=== PATIENT | female | born 1985 | race Caucasian/White ===

== ENCOUNTER 2018-02-26 19:34 | Emergency (ER) | payer OTHER ==
[2018-02-26 20:09] VITALS: BP 105/50
--- NOTE | 2018-02-26 21:54 | ED Physician Documentation ---
PD HPI UPPER EXT INJURY - Stated complaint Stated Complaint: R INDEX FINGER PX - Chief complaint Chief Complaint: Laceration - History of Present Illness Location: Right, Finger Type of injury: Blunt / blow Where injury occurred: Home Timing - onset: Yesterday Timing - details: Abrupt onset Similar symptoms before: Has not had sx before Recently seen: Not recently seen - Additonal information Additional information: Patient is a 32 year old female presenting to the emergency department for finger pain. Patient states that she hit it with a sledgehammer yesterday. Patient's sister is a vet and was able to clean it and put a butterfly bandage over it. Patient wanted to see if it was fractured. there is no significant open laceration at this time. Patient is up to date on her tetanus. Review of Systems Ten Systems: 10 systems reviewed and negative Musculoskeletal: reports: Extremity pain PD PAST MEDICAL HISTORY - Past Medical History Past Medical History: No - Past Surgical History Past Surgical History: Yes - Present Medications Home Medications: Ambulatory Orders Medication Instructions Recorded Confirmed Cetirizine [ZyrTEC] 1 tab PO DAILY 02/26/18 02/26/18 - Allergies Allergies/Adverse Reactions: Allergies Allergy/AdvReac Type Severity Reaction Status Date / Time No Known Drug Allergies Allergy Verified 02/26/18 20:37 - Social History Does the pt smoke?: No Smoking Status: Never smoker Does the pt drink ETOH?: No Does the pt have substance abuse?: No - Immunizations Immunizations are current?: Yes - POLST Patient has POLST: No PD ED PE NORMAL - Vitals Vital signs reviewed: Yes - General General: Alert and oriented X 3 - HEENT HEENT: Atraumatic - Neck Neck: Supple, no meningeal sign - Cardiac Cardiac: RRR - Respiratory Respiratory: No respiratory distress - Neuro Neuro: Alert and oriented X 3 Eye Opening: Spontaneous PD ED PE EXPANDED - Extremities Extremities: Right finger(s) (superficial laceration and tenderness of second digit) Results - Vitals Vitals: Vital Signs - 24 hr 02/26/18 20:06 Temperature 36.2 C L Heart Rate 67 Respiratory 16 Rate Blood Pressure 105/50 L O2 Saturation 99 Oxygen O2 Source Room air - Rads (name of study) finger x-ray Radiology: Final report received, EMP read contemporaneously (no fracture) PD MEDICAL DECISION MAKING - ED course Complexity details: reviewed old records, reviewed results, re-evaluated patient , d/w patient ED course: patient was seen and examined at bedside. Patient was sent for imaging. when patient returned results were reviewed. there was no acute fracture. Steristrip was placed on the wound. Patient required no further work up and was stable for discharge with outpatient follow up. - Sepsis Event Vital Signs: Vital Signs - 24 hr 02/26/18 20:06 Temperature 36.2 C L Heart Rate 67 Respiratory 16 Rate Blood Pressure 105/50 L O2 Saturation 99 Oxygen O2 Source Room air Departure - Departure Disposition: 01 Home, Self Care Clinical Impression: Abrasion Condition: Good Instructions: ED Laceration All Follow-Up: primary,care provider [Other] - As Needed Comments: Your diagnostics today were within normal limits. there is no acute fracture at this time. keep your wound clean and dry and monitor for signs of infection. you should follow up with your doctor for re-evaluation if necessary. you can take motrin or tylenol as needed for pain. You may return to the emergency department at any time for new, worsening or uncontrollable symptoms. Discharge Date/Time: 02/26/18 22:00
--- NOTE | 2018-02-26 22:04 | XRAY Report ---
Procedure Date: 02/26/2018 Accession Number: [id number] / [id number] Procedure: XR - Finger(s) RT CPT Code: FULL RESULT: EXAM: RIGHT SECOND DIGIT RADIOGRAPHY EXAM DATE: 02/26/2018 09:21 PM. CLINICAL HISTORY: Trauma to 2nd digit. COMPARISON: None. TECHNIQUE: 3 views. FINDINGS: Bones: No acute displaced fracture. No suspicious focal osseous lesion. Joints: No subluxation/dislocation. Soft Tissues: No radiopaque foreign body. IMPRESSION: No acute osseous abnormality. RADIA
== END 2018-02-26 22:00 | disposition home or self-care (01) ==
LOC: ED 19:34
DX: S60.410A Abrasion of right index finger, initial encounter (principal); W22.8XXA Striking against or struck by other objects, initial encounter; Y93.H9 Activity, other involving exterior property and land maintenance, building and construction; Y92.007 Garden or yard of unspecified non-institutional (private) residence as the place of occurrence of the external cause
CPT/HCPCS: 73140; 99282; 99283

== ENCOUNTER 2018-06-08 17:43 | Emergency (ER) | payer OTHER ==
[2018-06-08 18:13] VITALS: BP 132/76
[2018-06-08] MEDS ORDERED: predniSONE 20 MG TABLET PO STA (18:22)
--- NOTE | 2018-06-08 18:25 | ED Physician Documentation ---
History of Present Illness - Stated complaint Stated Complaint: EYES SWOLLEN - Chief complaint Chief Complaint: General - History obtained from History obtained from: Patient - History of Present Illness Timing: Yesterday (32-year-old woman with history of seasonal allergies developed migratory rash and itching all over as well as periorbital swelling over the last day or so. She only can think of maybe mowing the grass a few days ago as the trigger. No other new exposures. She denies shortness of breath or rhinorrhea.) Review of Systems Constitutional: denies: Fever, Chills Cardiac: denies: Chest pain / pressure, Palpitations Respiratory: denies: Dyspnea, Cough GI: denies: Abdominal Pain, Nausea, Constipation, Diarrhea PD PAST MEDICAL HISTORY - Past Surgical History Past Surgical History: Yes - Present Medications Home Medications: Ambulatory Orders Medication Instructions Recorded Confirmed Cetirizine [ZyrTEC] 1 tab PO DAILY 02/26/18 06/08/18 predniSONE [Prednisone] 60 mg PO DAILY 5 Days #15 tablet 06/08/18 - Allergies Allergies/Adverse Reactions: Allergies Allergy/AdvReac Type Severity Reaction Status Date / Time No Known Drug Allergies Allergy Verified 06/08/18 18:13 - Social History Does the pt smoke?: No Smoking Status: Never smoker Does the pt drink ETOH?: No Does the pt have substance abuse?: No - Immunizations Immunizations are current?: Yes - POLST Patient has POLST: No PD ED PE NORMAL - Vitals Vital signs reviewed: Yes - General General: Alert and oriented X 3, No acute distress - HEENT HEENT: PERRL, EOMI, Other (She has mild periorbital edema bilaterally and the oropharynx is normal without angioedema.) - Neck Neck: Supple, no meningeal sign, No bony TTP - Cardiac Cardiac: RRR, No murmur - Respiratory Respiratory: No respiratory distress, Clear bilaterally - Abdomen Abdomen: Non tender - Derm Derm: Other (Mild hives on the forearms) - Neuro Neuro: Alert and oriented X 3, Normal speech Results - Vitals Vitals: Vital Signs - 24 hr 06/08/18 18:11 Temperature 36.7 C Heart Rate 82 Respiratory 14 Rate Blood Pressure 132/76 H O2 Saturation 100 Oxygen O2 Source Room air Departure - Departure Disposition: 01 Home, Self Care Clinical Impression: Allergic reaction Qualifiers: Encounter type: initial encounter Qualified Code(s): T78.40XA - Allergy, unspecified, initial encounter Condition: Good Record reviewed to determine appropriate education?: Yes Instructions: ED Allergic Reaction General Other Prescriptions: predniSONE [Prednisone] 60 mg PO DAILY 5 Days #15 tablet Comments: You can continue the Benadryl as needed for itching and other symptoms. The steroid should help over the next 6-12 hours. Return for new or worsening symptoms. Follow-up with your physician. Your blood pressure was elevated today on check into the emergency department. This does not mean that you have hypertension, it is a common phenomenon to come to the emergency department and have elevated blood pressure. I recommend that you see your primary care physician within the week to have it rechecked when you are feeling better.
== END 2018-06-08 18:44 | disposition home or self-care (01) ==
LOC: ED 17:43
DX: T78.40XA Allergy, unspecified, initial encounter (principal); R03.0 Elevated blood-pressure reading, without diagnosis of hypertension; X58.XXXA Exposure to other specified factors, initial encounter
CPT/HCPCS: 99283; J7512

== ENCOUNTER 2019-06-13 12:43 | Emergency (ER) | payer OTHER ==
[2019-06-13 13:04] LABS: BILIRUBIN,URINE NEGATIVE (NEGATIVE); GLUCOSE, URINE (UA) NEGATIVE (NEGATIVE); KETONES,URINE (UA) NEGATIVE (NEGATIVE); LEUKOCYTE ESTERASE, URINE NEGATIVE (NEGATIVE); NITRITE,URINE NEGATIVE (NEGATIVE); OCCULT BLOOD,URINE NEGATIVE (NEGATIVE); PROTEIN,URINE NEGATIVE (NEGATIVE); UROBILINOGEN,URINE 0.2 (NORMAL) E.U./dL (NORMAL)
[2019-06-13 13:06] LABS: CLARITY,URINE CLEAR (CLEAR)
[2019-06-13 13:07] LABS: HCG UR QUAL POSITIVE
[2019-06-13 13:18] LABS: BASOPHILS % (AUTO) 0.2 %; EOSINOPHILS # (AUTO) 0.1 10^3/uL (0.0-0.7); EOSINOPHILS % (AUTO) 1.9 %; HGB - HEMOGLOBIN 12.3 g/dL (12.0-16.0); LYMPHOCYTES # (AUTO) 1.4 10^3/uL (1.5-3.5); LYMPHOCYTES % (AUTO) 24.7 %; MEAN CORPUSCULAR HEMOGLOBIN 31.3 pg (27.0-31.0); MEAN CORPUSCULAR HGB CONC 32.5 g/dL (32.0-36.0); MEAN CORPUSCULAR VOLUME 96.2 fL (81.0-99.0); MEAN PLATELET VOLUME 10.9 fL (7.9-10.8); MONOCYTES # (AUTO) 0.6 10^3/uL (0.0-1.0); MONOCYTES % (AUTO) 9.8 %; NEUTROPHILS # (AUTO) 3.7 10^3/uL (1.5-6.6); NEUTROPHILS % (AUTO) 63.1 %; PLT - PLATELET COUNT 220 10^3/uL (130-450); RED BLOOD COUNT 3.93 10^6/uL (4.20-5.40); RED CELL DISTRIBUTION WIDTH 13.3 % (12.0-15.0); WHITE BLOOD COUNT 5.8 x10^3/uL (4.8-10.8)
[2019-06-13 13:27] LABS: ALBUMIN/GLOBULIN RATIO 1.1 (1.0-2.2); BILIRUBIN,TOTAL 0.3 mg/dL (0.2-1.0); CREATININE 0.5 mg/dL (0.4-1.0); TOTAL PROTEIN 7.6 g/dL (6.7-8.2)
[2019-06-13 15:46] VITALS: BP 129/73
--- NOTE | 2019-06-13 15:50 | Ultrasound Report ---
Reason: L pelvic pain, vag bleed, 8 weeks EGA Procedure Date: 06/13/2019 Accession Number: [id number] / [id number] Procedure: US - OB Transvaginal CPT Code: Final Report FULL RESULT: EXAM: FIRST TRIMESTER OBSTETRIC ULTRASOUND (Less than 11 weeks) EXAM DATE: 06/13/2019 03:12 PM. CLINICAL HISTORY: L pelvic pain, vag bleed, 8 weeks EGA. LMP: 04/18/2019. COMPARISONS: None. TECHNIQUE: Transabdominal and transvaginal ultrasound examination with static image documentation. CLINICAL DATES: EGA 8 weeks, 0 days with LIBAN 01/23/2020 based on LMP. ASSESSMENT: Gestational Sac: Single intrauterine. Mean gestational sac diameter: 15 mm = 6 weeks, 2 days. Embryo: CRL (crown-rump length) 11 mm = 7 weeks, 1 day. Cardiac activity: 159 beats per minute. Yolk sac: 3 mm, elongated irregular shape. Amniotic fluid: Not accurately assessed at this gestational age. Early placenta: Not visible at this gestational age. Other: Small perigestational fluid collections measured 0.5 x 0.8 x 0.5 cm on the right anteriorly; and 0.4 x 0.6 x 0.5 cm on the right posteriorly. MATERNAL STRUCTURES: Uterus: Anteverted. Posterior intramural fibroid measures 0.4 x 0.3 x 0.4 cm. Cervix: Closed. Nabothian cyst noted. Right Ovary/Adnexa: The ovary measures 2.4 x 2.3 x 2.2 cm, volume 6.6 cc. Unremarkable. Left Ovary/Adnexa: The ovary measures 2.8 x 2.1 x 2.4 cm, volume 7.3 cc. Left ovarian corpus luteal cyst measures 1.2 x 1.4 x 1.6 cm. Free Fluid: None. Other: None. IMPRESSION: 1. Single viable intrauterine at EGA 7 weeks, 1 day with LIBAN 01/29/2020 based on crown-rump length, which is mildly discordant with LMP. 2. Assigned dating is ILBAN 01/29/2020 based on present ultrasound. 3. Irregular yolk sac shape noted, however this has not been shown to correlate with failure. Two small perigestational bleeds are also seen. Consider follow-up ultrasound in 10-14 days to reassess viability. 4. Small 0.4 cm posterior intramural fibroid. RADIA
--- NOTE | 2019-06-13 15:57 | ED Physician Documentation ---
PD HPI FEMALE - Stated complaint Stated Complaint: FEMALE /8 WK OB - Chief complaint Chief Complaint: Abd Pain - History obtained from History obtained from: Patient - History of Present Illness Timing - onset: Yesterday Timing - duration: Days (1) Timing - details: Gradual onset Pain level max: 4 Pain level max: 3 Associated symptoms: Vaginal bleeding (dark. only when using the bathroom. 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 History: G (4), P (3) Recently seen: Not recently seen Review of Systems Constitutional: denies: Fever, Chills GI: denies: Vomiting, Diarrhea Skin: denies: Rash Musculoskeletal: denies: Neck pain, Back pain Neurologic: denies: Focal weakness, Numbness, Headache PD PAST MEDICAL HISTORY - Past Medical History Past Medical History: Yes PEDIATRIC AUDIOLOGIST: Ovarian cysts - Past Surgical History Past Surgical History: Yes - Present Medications Home Medications: Ambulatory Orders Medication Instructions Recorded Confirmed Cetirizine [ZyrTEC] 1 tab PO DAILY 02/26/18 06/08/18 predniSONE [Prednisone] 60 mg PO DAILY 5 Days #15 tablet 06/08/18 - Allergies Allergies/Adverse Reactions: Allergies Allergy/AdvReac Type Severity Reaction Status Date / Time No Known Drug Allergies Allergy Verified 06/13/19 12:48 - Social History Does the pt smoke?: No Smoking Status: Never smoker Does the pt drink ETOH?: No Does the pt have substance abuse?: No - Immunizations Immunizations are current?: Yes - POLST Patient has POLST: No PD ED PE NORMAL - Vitals Vital signs reviewed: Yes - General General: Alert and oriented X 3, No acute distress - HEENT HEENT: Moist mucous membranes - Neck Neck: Supple, no meningeal sign - Cardiac Cardiac: RRR, Strong equal pulses - Respiratory Respiratory: No respiratory distress, Clear bilaterally - Abdomen Abdomen: Soft, Non distended, Other (mild TTP LLQ. no peritoneal signs.) - Female Female : Pt declined - Derm Derm: Warm and dry - Extremities Extremities: No edema - Neuro Neuro: Alert and oriented X 3 - Psych Psych: Normal mood, Normal affect Results - Vitals Vitals: Oxygen O2 Source Room air - Labs Labs: Laboratory Tests 06/13/19 06/13/19 06/13/19 12:56 12:56 13:01 WBC 5.8 RBC 3.93 L Hgb 12.3 Hct 37.8 MCV 96.2 MCH 31.3 H MCHC 32.5 RDW 13.3 Plt Count 220 MPV 10.9 H Neut # (Auto) 3.7 Lymph # (Auto) 1.4 L Terry # (Auto) 0.6 Eos # (Auto) 0.1 Baso # (Auto) 0.0 Absolute Nucleated RBC 0.00 Nucleated RBC % 0.0 Sodium Potassium Chloride Carbon Dioxide Anion Gap BUN Creatinine Estimated GFR (MDRD) Glucose Calcium Total Bilirubin AST ALT Alkaline Phosphatase Total Protein Albumin Globulin Albumin/Globulin Ratio Lipase HCG, Quant Urine Color LIGHT YELLOW Urine Clarity CLEAR Urine pH 7.0 Ur Specific [place] <=1.005 <=1.005 Urine Protein NEGATIVE Urine Glucose (UA) NEGATIVE Urine Ketones NEGATIVE Urine Occult Blood NEGATIVE Urine Nitrite NEGATIVE Urine Bilirubin NEGATIVE Urine Urobilinogen 0.2 (NORMAL) Ur Leukocyte Esterase NEGATIVE Ur Microscopic Review NOT INDICATED Urine Culture Comments NOT INDICATED Urine HCG, Qual POSITIVE 06/13/19 06/13/19 13:01 13:01 WBC RBC Hgb Hct MCV MCH MCHC RDW Plt Count MPV Neut # (Auto) Lymph # (Auto) Terry # (Auto) Eos # (Auto) Baso # (Auto) Absolute Nucleated RBC Nucleated RBC % Sodium 137 Potassium 3.5 Chloride 101 Carbon Dioxide 27 Anion Gap 9.0 BUN 11 Creatinine 0.5 Estimated GFR (MDRD) 141 Glucose 107 H Calcium 9.0 Total Bilirubin 0.3 AST 30 ALT 63 H Alkaline Phosphatase 51 Total Protein 7.6 Albumin 4.0 Globulin 3.6 Albumin/Globulin Ratio 1.1 Lipase 43 HCG, Quant 42646.00 Urine Color Urine Clarity Urine pH Ur Specific [place] Urine Protein Urine Glucose (UA) Urine Ketones Urine Occult Blood Urine Nitrite Urine Bilirubin Urine Urobilinogen Ur Leukocyte Esterase Ur Microscopic Review Urine Culture Comments Urine HCG, Qual - Rads (name of study) OB US Radiology: Prelim report reviewed, EMP read contemporaneously, See rad report (IUP) PD MEDICAL DECISION MAKING - ED course Complexity details: reviewed results, re-evaluated patient, considered differential, d/w patient ED course: 33-year-old female with bleeding in early . Does have small adal- gestational bleeds. Likely that this is the cause. She does have what appears to be a viable IUP. No evidence of ectopic . Minimal bleeding. We will have her follow-up with her OB for further care. Patient counseled regarding signs and symptoms for which I believe and urgent re-evaluation would be necessary. Patient with good understanding of and agreement to plan and is comfortable going home at this time This document was made in part using voice recognition software. While efforts are made to proofread this document, sound alike and grammatical errors may occur. Departure - Departure Disposition: 01 Home, Self Care Clinical Impression: Bleeding in early Condition: Good Instructions: ED Miscarriage Poss Follow-Up: Usha Leos MD [Primary Care Provider] - Within 1 week Comments: You appear to have an intrauterine at approximately 7 weeks and 1 day. Your estimated delivery date is 01/29/2020. This is an early dating and the grows larger. There is a slightly irregular yolk sac, this should be followed up with your stump shooter to determine if you need a repeat ultrasound in 10 to 14 days. Return if you worsen. IMPRESSION: 1. Single viable intrauterine at EGA 7 weeks, 1 day with LIBAN 01/29/2020 based on crown-rump length, which is mildly discordant with LMP. 2. Assigned dating is LIBAN 01/29/2020 based on present ultrasound. 3. Irregular yolk sac shape noted, however this has not been shown to correlate with failure. Two small perigestational bleeds are also seen. Consider follow-up ultrasound in 10-14 days to reassess viability. 4. Small 0.4 cm posterior intramural fibroid. Discharge Date/Time: 06/13/19 16:33
== END 2019-06-13 16:33 | disposition home or self-care (01) ==
LOC: ED 12:43
DX: O46.91 Antepartum hemorrhage, unspecified, first trimester (principal)
CPT/HCPCS: 36415; 76801; 76817; 80053; 81001; 81003; 81025; 83690; 84702; 85025; 87086; 99284

== ENCOUNTER 2019-10-31 16:36 | Outpatient (CLI) | payer OTHER | END 2019-10-31 16:37 | disposition home or self-care (01) | LOC: COV 16:36 | PROVIDERS: ATTEND Family Medicine | DX: R05 Cough (principal); R50.9 Fever, unspecified | CPT/HCPCS: 81599 ==

== ENCOUNTER 2020-01-06 08:00 | Outpatient (CLI) | payer OTHER ==
[2020-01-06 21:49] LABS: TRICHOMONAS VAGINALIS DNA NEGATIVE (NEGATIVE)
== END 2020-01-06 23:59 | disposition home or self-care (01) ==
LOC: LAB.R 08:00
PROVIDERS: ATTEND Obstetrics & Gynecology
DX: Z36.85 Encounter for antenatal screening for Streptococcus B (principal)
CPT/HCPCS: 87491; 87591; 87661; 87797

== ENCOUNTER 2020-04-05 08:54 | Day surgery (SDC) | payer OTHER ==
[2020-04-05] MEDS ORDERED: LACTATED RINGERS 1,000 ML IV ONE ×2 (09:15→11:56)
[2020-04-05 09:18] LABS: HCG UR QUAL NEGATIVE
--- NOTE | 2020-04-05 09:29 | ANESTHESIA ---
Pre-Anesthesia VS, & Labs - Diagnosis desires sterilization - Procedure laparoscopic salpingectomy Vital Signs: Temp Pulse Resp BP Pulse Ox 36.2 C L 67 16 118/68 99 04/05/20 08:59 04/05/20 08:59 04/05/20 08:59 04/05/20 08:59 04/05/20 08:59 Height 5 ft 6.93 in Weight (kg) 84.6 kg Body Mass Index 29.7 - NPO >8 hours - Is Patient ?: No - Lab Results Lab results reviewed: Yes Home Medications and Allergies Home Medications: Ambulatory Orders Fluticasone [Flonase] 1 sprays GAVIN DAILY 03/30/20 Pnv No.95/Ferrous Fum/Folic AC [ Formula] 1 each PO 03/30/20 Fluticasone [Flonase] 1 sprays GAVIN DAILY 03/30/20 Pnv No.95/Ferrous Fum/Folic AC [ Formula] 1 each PO 03/30/20 Allergies/Adverse Reactions: Allergies Allergy/AdvReac Type Severity Reaction Status Date / Time No Known Drug Allergies Allergy Verified 03/30/20 11:31 Anes History & Medical History - Anesthetic History Anesthesia Complications: reports: No previous complications Family history of Anesthesia Complications: Reports (maternal grandmother and mother have pseudocholinesterase deficiency) Family history of Malignant Hyperthermia: Denies - Medical History Cardiovascular: reports: None Pulmonary: reports: None Gastrointestinal: reports: None Urinary: reports: None Neuro: reports: None Musculoskeletal: reports: None Endocrine/Autoimmune: reports: None Skin: reports: None Smoking Status: Never smoker Exam General: Alert, Oriented x3, Cooperative, No acute distress Dental: WNL Mouth Openin Fingerbreadth Neck Mobility: Normal Mallampati classification: II Respiratory: Lungs clear, Normal breath sounds, No respiratory distress, No accessory muscle use Cardiovascular: Regular rate, Normal S1, Normal S2, No murmurs Plan Anesthesia Type: General (discussed pseudocholinesterase deficiency with Dr. Thomas) Consent for Procedure(s) Verified and Reviewed: Yes Code Status: Attempt Resuscitation ASA classification: 1-Healthy patient Is this case an emergency?: No
[2020-04-05] MEDS ORDERED: HYDROmorphone 0.5 MG/0.5 ML SYRINGE IVP PRN (09:31)
[2020-04-05] MEDS ORDERED: MORPHINE 2 MG/ML CARPUJECT IVP PRN (09:31)
[2020-04-05] MEDS ORDERED: ePHEDrine 50 MG/ML VIAL IVP PRN (09:31)
[2020-04-05] MEDS ORDERED: METOCLOPRAMIDE 10 MG/2 ML VIAL IVP PRN (09:31)
[2020-04-05] MEDS ORDERED: ATROPINE ABBOJECT 1 MG/10 ML SYRINGE IVP PRN (09:31)
[2020-04-05] MEDS ORDERED: NALOXONE 0.4 MG/ML VIAL IVP PRN (09:31)
[2020-04-05] MEDS ORDERED: ONDANSETRON 4 MG/2 ML VIAL IVP PRN (09:31)
[2020-04-05] MEDS ORDERED: fentaNYL 100 MCG/2 ML VIAL IVP PRN (09:31)
[2020-04-05] MEDS ORDERED: LACTATED RINGERS 1,000 ML IV SCH (10:00)
[2020-04-05] MEDS ORDERED: ONDANSETRON 4 MG/2 ML VIAL IVP ONE (10:20)
[2020-04-05] MEDS ORDERED: LIDOCAINE-MPF 2% 5 ML VIAL IM ONE (10:20)
[2020-04-05] MEDS ORDERED: KETOROLAC 30 MG/ML VIAL IVP ONE (10:20)
[2020-04-05] MEDS ORDERED: DEXAMETHASONE 4 MG/ML VIAL IVP ONE (10:20)
[2020-04-05] MEDS ORDERED: PROPOFOL 200 MG/20 ML VIAL IVP ONE (10:20)
[2020-04-05] MEDS ORDERED: fentaNYL 100 MCG/2 ML VIAL IVP ONE (10:20)
[2020-04-05] MEDS ORDERED: BUPIVACAINE 0.5% PF 30 ML VIAL ONE (10:27)
[2020-04-05] MEDS ORDERED: BUPIVACAINE 0.5% PF 30 ML VIAL SUBQ ONE ×2 (11:07)
[2020-04-05] MEDS ORDERED: HYDROcod/ACETAM 10 MG/325 MG TABLET PO PRN (11:56)
--- NOTE | 2020-04-05 12:00 | OPERATIVE REPORT ---
Operative Report - General Procedure Date: 04/05/20 Planned Procedure: Laparoscopic bilateral salpingectomies Pre-Op Diagnosis: Undesired fertility Procedure Performed: Same as above Post Op Diagnosis: Same as above - Procedure Note Primary Surgeon: Alfonso Secondary Surgeon: Yadiel Anesthesia Provider: William Anesthesia Technique: General ET tube Pathology: Portions of both fallopian tubes IV Fluids (mL): 800 Estimated Blood Loss (mL): 5 Indications: Undesired fertility Findings: Exam under anesthesia The uterus was of normal size, shape, and consistency and retroverted. The adnexa were benign. Operative findings The uterus was of normal size and shape and retroverted. The tubes and ovaries appeared normal. The anterior and posterior cul-de-sacs, liver edge and gallbladder, and appendix all appeared normal. Complications: None - Other Other Information/Narrative: Procedure: The patient was taken to the operating room, where general endotracheal anesthesia was administered without difficulty. She was then positioned in the low dorsal lithotomy position with her lower extremities in [place] stirrups. Vagina, perineum, and abdomen were then prepped and draped in a sterile fashion, and an in-an-out catheterization was performed. Procedure Time-Out was then performed. A sterile bivalve speculum was then inserted into the vagina. A Hulka tenaculum was placed on the anterior lip of the cervix. The speculum was then removed from the vagina. Attention was then turned to the laparoscopy. 0.5% Marcaine was injected infraumbilically, then a 7-mm horizontal skin incision made. Once 2 L of gas was instilled through a Verress needle, a 0-degree, 5 mm laparoscope was ins erted into a 5 mm trocar and passed through the anterior layers of the abdominal wall using Optiview technique. The abdomen was visualized, then 2 additional ports placed in the right and left lower quadrants, first injecting local anesthetic, then placing 5 mm ports. The patient was placed into Trendelenberg and bowel swept out of the cul-de-sac. The right distal fallopian tube was then grasped and pulled anteriorly and superiorly. The tubo-ovarian ligament was then crossclamped, cauterized, and cut using the Ligasure, then the mesosalpinx was crossclamped, cauterized, and cut, completely the right fallopian tube from the uterus at the cornu. The right fallopian tube was then removed from the abdomen. The left distal fallopian tube was then grasped and pulled anteriorly and superiorly. The tubo-ovarian pedicle was then crossclamped, cauterized, and cut, the distal left fallopian tube from the left ovary. The mesosalpinx was then serially cauterized and cut until the cornu was reached, then the fallopian tube was crossclamped, cauterized, and cut. The surgical sites appeared hemostatic. The left fallopian tube was removed from the abdomen. At this point the laparoscopy was deemed complete, and all trochars were removed from the abdomen. The carbon dioxide gas was then allowed to escape. The incisions were then closed with 4-0 Monocryl in a subcuticular fashion followed by Dermabond skin adhesive. The tenaculum was then removed from the posterior lip of the cervix. The sterile bivalve speculum was then reinserted to ensure that the tenaculum site was hemostatic. No bleeding was noted, and the speculum was then removed. At this point the procedure was deemed complete. The patient was then replaced supine, awakened, extubated, and transferred to the PACU in stable condition.
--- NOTE | 2020-04-05 12:30 | ANESTHESIA POST OP EVALUATION ---
Anesthesia Post Eval - Post Anesthesia Eval Vitals: Last Vital Signs Temp 36.4 C L 04/05/20 12:25 Pulse 68 04/05/20 12:25 Resp 14 04/05/20 12:25 BP 113/72 04/05/20 12:25 Pulse Ox 100 04/05/20 12:25 CV Function Including HR & BP: positive: Stable Pain Control: positive: Satisfactory Nausea & Vomiting: positive: Negative Mental Status: positive: Baseline Respiratory Status: Airway Patent Hydration Status: Satisfactory Anesthesia Complications: positive: None
[2020-04-05] MEDS ORDERED: HYDROcod/ACETAM 10 MG/325 MG TABLET ONE (13:25)
[2020-04-05 13:46] VITALS: BP 117/74
== END 2020-04-05 08:55 | disposition home or self-care (01) ==
LOC: SDS 08:54
PROVIDERS: ATTEND Obstetrics & Gynecology
PROC: 0UT74ZZ Resection of Bilateral Fallopian Tubes, Percutaneous Endoscopic Approach (ICD-10-PCS; principal; 2020-04-05 10:15)
DX: Z30.2 Encounter for sterilization (principal); Z15.01 Genetic susceptibility to malignant neoplasm of breast
CPT/HCPCS: 81025